=== PATIENT | female | born 1990 ===

== ENCOUNTER 2021-09-05 16:30 | Emergency (ER) | payer OTHER ==
[~2021-09-05] VITALS: Ht 172.7 cm; Wt 68.0 kg
[2021-09-05 17:05] VITALS: BP 145/86
== END 2021-09-05 20:55 | disposition home or self-care (01) ==
LOC: ER 16:30
DX: F10.20 Alcohol dependence, uncomplicated (principal); F42.8 Other obsessive-compulsive disorder; E78.5 Hyperlipidemia, unspecified; Y90.9 Presence of alcohol in blood, level not specified